=== PATIENT | female | born 2000 | race Two or more races ===

== ENCOUNTER → 2024-05-21 08:49 | Outpatient (CLI) | payer OTHER ==
[~2024-05-21 08:49] MED LIST: MUCINEX600 MG PO; ZITHROMAX500 MG PO
[2024-05-21 09:32] LABS: PH,URINE 5.5 (5.0-8.0); URINE APPEARANCE Clear; URINE BILIRRUBIN Negative (NEGATIVE); URINE BLOOD Negative; URINE COLOR Yellow; URINE GLUCOSE Negative (NEGATIVE); URINE KETONE Negative (NEGATIVE); URINE LEUKOCYTE Negative; URINE NITRATE Negative; URINE PROTEIN Negative (NEGATIVE); URINE UROBILINOGEN 0.2 E.U./dl
[2024-05-21 09:34] LABS: URINE RBC 4.7 uL (0.0-20.8); URINE WBC 4.6 uL (0.0-23.2)
[2024-05-21 09:37] LABS: HEMATOCRIT 39.8 % (36.0-45.00); HEMOGLOBIN 13.8 g/dL (12.0-15.00); MEAN CELL VOLUME 87.2 fL (80.00-100.00); MEAN CORPUSCULAR HEMOGLOBIN 30.2 pg (27.00-32.0); MEAN CORPUSCULAR HGB CONC 34.6 g/dl (32.0-36.0); PLATELET COUNT 332 K/uL (150-450); RED BLOOD COUNT 4.56 M/uL (4.00-6.00); RED CELL DISTRIBUTION WIDTH 13.5 % (11.5-14.5)
[2024-05-21 10:28] LABS: ALBUMIN 4.3 gm/dL (3.4-5.0); BILIRUBIN TOTAL 0.57 mg/dL (0.3-1.2); CALCIUM 9.5 mg/dL (8.5-10.1); CHOL HDL RATIO 4.3 (0-5.0); CREATININE SERUM 0.82 mg/dL (0.55-1.02); GFR 85.65; GLOBULINA 3.7 G/DL (2.4-3.5); POTASSIUM 3.77 mEq/L (3.5-5.1); T4 FREE 0.92 NG/ML (0.76-1.46); TSH 2.55 uIU/mL (0.358-3.74)
[2024-05-22 07:07] LABS: HEPATITIS C VIRUS ANTIBODY Non Reactive (Non Reactive); hav igm Negative (Negative); hcv Non Reactive (Non Reactive); hep b c Negative (Negative); hep b s ag Negative (Negative)
[2024-05-22 15:35] LABS: RAPID PLASMA REAGIN NONREACTIVE BY RPR (NONREACTIVE)
[2024-05-24 23:31] LABS: ESTRADIOL SERUM 22.3 pg/mL (.); FOLLICLE STIMULATING HORMONE 6.8 mIU/mL (.); PROGESTERONA 0.1 ng/mL (.); PROLACTIN 18.9 ng/mL (4.8-33.4); T T 16 ng/dL (13-71); test free 1.5 pg/mL (0.0-4.2)
== END | disposition home or self-care (01) ==
LOC: LAB 08:49
PROVIDERS: ATTEND Obstetrics & Gynecology
DX: M93.80 Other specified osteochondropathies of unspecified site (principal); Z12.11 Encounter for screening for malignant neoplasm of colon; D64.9 Anemia, unspecified; E03.8 Other specified hypothyroidism; N95.1 Menopausal and female climacteric states; I10 Essential (primary) hypertension; C51.9 Malignant neoplasm of vulva, unspecified; N30.00 Acute cystitis without hematuria; E83.51 Hypocalcemia; A64 Unspecified sexually transmitted disease; N39.0 Urinary tract infection, site not specified; R97.8 Other abnormal tumor markers; R79.89 Other specified abnormal findings of blood chemistry; E55.9 Vitamin D deficiency, unspecified; A60.9 Anogenital herpesviral infection, unspecified

== ENCOUNTER 2024-05-21 09:34 | Outpatient (CLI) | payer OTHER | END 2024-05-21 09:40 | disposition home or self-care (01) | LOC: SONOGRAMA 09:34 | PROVIDERS: ATTEND Obstetrics & Gynecology | DX: R10.2 Pelvic and perineal pain (principal) ==

== ENCOUNTER 2024-08-19 09:30 | Outpatient (CLI) | payer OTHER | END 2024-08-19 10:00 | disposition home or self-care (01) | LOC: PPH VACUNA 09:30 | PROVIDERS: ATTEND Emergency Medicine Pediatric Emergency Medicine | DX: Z23 Encounter for immunization (principal) ==

== ENCOUNTER 2025-05-02 11:13 | Outpatient (CLI) | payer OTHER ==
[2025-05-02 13:07] LABS: T4 FREE 0.85 NG/ML (0.76-1.46); TSH 2.7 uIU/mL (0.358-3.74)
== END 2025-05-02 11:20 | disposition home or self-care (01) ==
LOC: LAB 11:13
PROVIDERS: ATTEND Obstetrics & Gynecology
DX: Z12.11 Encounter for screening for malignant neoplasm of colon (principal); D64.9 Anemia, unspecified; E03.8 Other specified hypothyroidism; N95.1 Menopausal and female climacteric states; I10 Essential (primary) hypertension; C51.9 Malignant neoplasm of vulva, unspecified; N30.00 Acute cystitis without hematuria; E83.51 Hypocalcemia; A64 Unspecified sexually transmitted disease; N39.0 Urinary tract infection, site not specified; R97.8 Other abnormal tumor markers; E55.9 Vitamin D deficiency, unspecified; A60.9 Anogenital herpesviral infection, unspecified

== ENCOUNTER 2025-05-02 11:37 | Outpatient (CLI) | payer OTHER | END 2025-05-02 13:32 | disposition home or self-care (01) | LOC: SONOGRAMA 11:37 | PROVIDERS: ATTEND General Practice | DX: R10.2 Pelvic and perineal pain (principal) ==

== ENCOUNTER 2025-07-16 17:59 | Emergency (ER) | payer OTHER ==
[~2025-07-16] VITALS: Ht 165.1 cm; Wt 72.6 kg
[2025-07-16 18:11] VITALS: BP 141/80; O2SAT 97
[2025-07-16] MEDS ORDERED: ELVITEG/COB/EMTRI/TENOFO DISOP 1 UDTAB TABLET PO ONE ×2 (18:30→18:55)
== END 2025-07-16 19:02 | disposition home or self-care (01) ==
LOC: ER 17:59
DX: T88.8XXA Other specified complications of surgical and medical care, not elsewhere classified, initial encounter (principal); X58.XXXA Exposure to other specified factors, initial encounter; Y93.F9 Activity, other caregiving; Y92.230 Patient room in hospital as the place of occurrence of the external cause

== ENCOUNTER → 2025-07-17 07:29 | Outpatient (CLI) | payer OTHER ==
[2025-07-17 07:59] LABS: URINE APPEARANCE Clear; URINE BILIRRUBIN Negative (NEGATIVE); URINE BLOOD Negative; URINE COLOR Yellow; URINE GLUCOSE Negative (NEGATIVE); URINE KETONE Trace (NEGATIVE); URINE LEUKOCYTE Negative; URINE NITRATE Negative; URINE PROTEIN Negative (NEGATIVE); URINE UROBILINOGEN 1.0 E.U./dl
[2025-07-17 08:00] LABS: BASO % 0.2 % (0.1-1.2); EOS # 0.09 (0.04-0.54); EOS % 1.1 % (0.7-7.0); LYMPH # 0.99 (1.18-3.74); LYMPH % 12.1 % (19.3-53.1); MEAN PLATELET VOLUME 9.70 fl (9.4-12.4); MONO # 0.71 (0.24-0.82); MONO % 8.7 % (4.7-12.5); NEUT # 6.35 (1.56-6.13); NEUT % 77.7 % (34.0-71.1); RED CELL DISTRIBUTION WIDTH 12.0 % (11.6-14.4)
[2025-07-17 08:57] LABS: ALT/SGPT 23.0 U/L (12-78); AST/SGOT 15.0 U/L (15-37); BILIRUBIN TOTAL 0.7 mg/dL (0.3-1.2); BUN CREA RATIO 13.0 (7.0-25.0); CHOL HDL RATIO 4.3 (0-5.0); CREATININE SERUM 0.86 mg/dL (0.55-1.02); GFR 80.4; GLOBULINA 3.5 G/DL (2.4-3.5); GLUCOSE FASTING 93.0 mg/dL (65-100); HDL 47.0 mg/dl (40-60); LDL 141.0 mg/dl (0-130); OSMOLALITY SERUM 278.0 MOSM/KG (275-295); VLDL 12.0 (0-39)
[2025-07-17 09:01] LABS: URINE BACTERIA 193.1 uL (0.0-1933); URINE EPITHELIAL CELLS 21.6 uL (0.0-38.8); URINE RBC 3.8 uL (0.0-20.8); URINE WBC 5.8 uL (0.0-23.2)
[2025-07-17 09:10] LABS: URINE CAST 0.00 uL (0.0-1.40)
[2025-07-18 07:07] LABS: HEPATITIS C VIRUS ANTIBODY Non Reactive (Non Reactive); hav igm Negative (Negative); hep b c Negative (Negative); hep b s ag Negative (Negative)
[2025-07-18 09:11] LABS: CA 125 22.3 U/mL (0.0-38.1); ESTRADIOL SERUM 35.8 pg/mL (.); PROGESTERONA 0.4 ng/mL (.)
== END | disposition home or self-care (01) ==
LOC: LAB 07:29
DX: D64.9 Anemia, unspecified (principal); Z12.11 Encounter for screening for malignant neoplasm of colon; E03.8 Other specified hypothyroidism; N95.1 Menopausal and female climacteric states; I10 Essential (primary) hypertension; C51.9 Malignant neoplasm of vulva, unspecified; N30.00 Acute cystitis without hematuria; E83.51 Hypocalcemia; A64 Unspecified sexually transmitted disease; N39.0 Urinary tract infection, site not specified; R97.8 Other abnormal tumor markers; R79.89 Other specified abnormal findings of blood chemistry; E55.9 Vitamin D deficiency, unspecified; A60.9 Anogenital herpesviral infection, unspecified

== ENCOUNTER 2025-08-21 10:00 | Outpatient (CLI) | payer OTHER | END 2025-08-21 10:10 | disposition home or self-care (01) | LOC: PPH VACUNA 10:00 | PROVIDERS: ATTEND Emergency Medicine Pediatric Emergency Medicine | DX: Z23 Encounter for immunization (principal) ==

== ENCOUNTER 2025-09-08 07:03 | Outpatient (CLI) | payer OTHER ==
[2025-09-08 08:42] LABS: URINE APPEARANCE Clear; URINE BILIRRUBIN Negative (NEGATIVE); URINE BLOOD Negative; URINE COLOR Yellow; URINE GLUCOSE Negative (NEGATIVE); URINE KETONE Negative (NEGATIVE); URINE LEUKOCYTE Trace; URINE NITRATE Negative; URINE PROTEIN Trace (NEGATIVE); URINE UROBILINOGEN 1.0 E.U./dl
[2025-09-08 08:46] LABS: URINE EPITHELIAL CELLS 27.0 uL (0.0-38.8); URINE RBC 7.6 uL (0.0-20.8); URINE WBC 22.1 uL (0.0-23.2)
[2025-09-08 09:11] LABS: URINE CAST 0.29 uL (0.0-1.40)
== END 2025-09-08 07:06 | disposition home or self-care (01) ==
LOC: LAB 07:03
PROVIDERS: ATTEND General Practice
DX: N39.0 Urinary tract infection, site not specified (principal)